=== PATIENT | male | born 1995 | race Caucasian/White ===

== ENCOUNTER 2022-11-20 10:27 | Emergency (ER) | payer BC, SELFPAY ==
[2022-11-20 11:02] VITALS: BP 133/87; PULSE 78; RESP 16; O2SAT 95
[2022-11-20 11:16] LABS: Amphetamine Screen Urine Negative (Negative); Barbiturate Screen Urine Negative (Negative); Benzodiazepines Screen Urine Negative (Negative); Cocaine Screen Urine Negative (Negative); Methadone Screen Urine Negative (Negative); Methamphetamines Screen Urine Negative (Negative); Opiate Screen Urine Negative (Negative); Oxycodone Screen Urine Negative (Negative); Phencyclidine Screen Urine Negative (Negative); Tricyclic Antidepressant Urine Negative (Negative)
[2022-11-20 11:18] LABS: Cannabinoid Screen Urine POSITIVE (Negative)
--- NOTE | 2022-11-20 11:23 | ED.GENADULT ---
HPI - General Adult General Time Seen by Provider: Date Seen: 11/20/22 Chief complaint: Headache/Migraine Stated complaint: Mental Health Time Seen by Provider: 11/20/22 10:38 Source: patient Mode of arrival: ambulatory Limitations: no limitations History of Present Illness HPI narrative: Patient is a 26-year-old male who has 30 days into his 60 day treatment for alcohol abuse. The patient reports he has had panic attacks he sees Dr. Weiss in [place] for primary care. He is on Vistaril and Effexor. He felt a little tremulous today had some rapid breathing felt his hands and feet get tingly. He is doing well with no alcohol. He reports no drug use or alcohol use. Although his marijuana screen is positive. Certainly this can last in his system for period of time. Patient denies chest pain breathing problem now he feels markedly better. He is trying to avoid any potentially addictive medications Related Data Allergies Allergy/AdvReac Type Severity Reaction Status Date / Time No Known Drug Allergies Allergy Verified 11/20/22 11:09 Review of Systems Status of ROS: Reports: 6 or more systems reviewed and unremarkable except as noted in History and below [facility] Social History Smoking Status: Former smoker How often do you have a drink containing alcohol: never AUDIT-C Alcohol total score: 0 Non-prescribed substance use: former substance user and marijuana (any form) Exam Narrative: Exam Narrative: Objective: Vital signs unremarkable O2 sat excellent In general patient apparent distress does not appear anxious sees descriptive in his issues mental status is appropriate, no suicidal ideation or plan. He does not feel depressed Heart rhythm regular heart murmur neurologic nonfocal Good peripheral perfusion noted Const: Vital Signs, click to edit/add: Vital Signs - 24 hr 11/20/22 11:02 11/20/22 11:36 Pulse Rate [Pulse Oximeter] 78 74 Respiratory Rate 16 Blood Pressure [Ri ght Upper Arm] 133/87 129/89 Pulse Oximetry 95 97 Oxygen Delivery Me thod Room Air Course Vital Signs Vital signs: Initial Vital Signs Pulse Rate 78 11/20/22 11:02 Pulse Rhythm Regular 11/20/22 11:02 Respiratory Rate 16 11/20/22 11:02 Blood Pressure 133/87 11/20/22 11:02 Blood Pressure Mean 102 04/05/23 11:02 Pulse Oximetry 95 11/20/22 11:02 Vital Signs Pulse Rate 78 11/20/22 11:02 Respiratory Rate 16 11/20/22 11:02 Blood Pressure 133/87 11/20/22 11:02 Pulse Oximetry 95 11/20/22 11:02 Pulse Rate 74 11/20/22 11:36 Respiratory Rate 16 11/20/22 11:02 Blood Pressure 129/89 11/20/22 11:36 Pulse Oximetry 97 11/20/22 11:36 Oxygen Delivery Method Room Air 11/20/22 11:36 Medical Decision Making MDM Narrative Medical decision making narrative: Patient is a 26-year-old male 30 days into his 60 day chemical dependency treatment program. He has a history of anxiety and panic attacks. At this point he is on Vistaril and Effexor. I think I would give him a small dose of Vistaril now 25 mg 2 some plant his usual dosage. Recommend rest observation exercise avoidance of any caffeine products. Would recommend he update Dr. Weiss is needed. Return as needed. Will also give him some Tylenol as he has had an intermittent headache. He has had no neurologic complaints however and does not have any worrisome symptoms to his had a Lab Data Labs: Lab Results 11/20/22 Range/Units 11:00 Urine Opiates Screen Negative (Negative) Ur Oxycodone Screen Negative (Negative) Urine Methadone Screen Negative (Negative) Ur Propoxyphene Screen Negative (Negative) Ur Barbiturates Screen Negative (Negative) U Tricyclic Antidepress Negative (Negative) Ur Phencyclidine Scrn Negative (Negative) Ur Amphetamines Screen Negative (Negative) U Methamphetamines Scrn Negative (Negative) U Benzodiazepines Scrn Negative (Negative) Urine Cocaine Screen Negative (Negative) U Marijuana (THC) Screen POSITIVE A* (Negative) Ur Drug Screen Comment See Note Discharge Plan Discharge Clinical Impression: Panic attack Condition: Improved Additional Instructions: Continue home medications, update Dr. Weiss is needed, cut back on caffeinated beverages. Return as needed. Activity Level: No Restrictions Discharge Diet: Regular Stand Alone Forms: [employer] Info Instructions
[2022-11-20] MEDS: ACETAMINOPHEN 500 MG TABLET 1000 MG PO (11:31)
[2022-11-20] MEDS: hydrOXYzine pamoate 25 MG CAPSULE PO (11:31)
[2022-11-20 11:36] VITALS: BP 129/89; PULSE 74; O2SAT 97
== END 2022-11-20 12:11 | disposition home or self-care (01) ==
PROVIDERS: Emergency Provider Family Medicine
DX: F41.0 Panic disorder [episodic paroxysmal anxiety] (principal)
CPT/HCPCS: 80306; 99283; A9270

== ENCOUNTER 2022-12-23 21:11 | Outpatient (CLI) | payer BC, SELFPAY | END 2022-12-23 21:12 | disposition home or self-care (01) | LOC: AMB 12-26 11:59 | PROVIDERS: Visit Provider Family Medicine | DX: R07.89 Other chest pain (principal) | CPT/HCPCS: A0425; A0427 ==

== ENCOUNTER 2022-12-23 21:35 | Emergency (ER) | payer BC, SELFPAY ==
[2022-12-23] VITALS (19 sets, daily range): BP systolic 103–125; BP diastolic 60–85; PULSE 71–92; RESP 18; TEMP 36.4; O2SAT 94–99; BMI 25.5
--- NOTE | 2022-12-23 22:09 | ED_ITS ---
HPI - General Adult General Time Seen by Provider: 22:09 Date Seen: 12/23/22 Chief complaint: Chest Pain Stated complaint: chest pain Time Seen by Provider: 12/23/22 22:09 Source: patient, EMS and RN notes reviewed Mode of arrival: EMS Limitations: no limitations History of Present Illness HPI narrative: Frederick is a very pleasant 27-year-old gentleman who is 64 days sober from alcohol and currently a resident at a local transitional housing Center who comes to the emergency room with chest pain. Patient states approximately 730 he began experiencing some shortness of breath and chest pain. EMS notes a normal EKG when they arrived but given the fact he was complaining of chest pain they did give him aspirin and nitroglycerin. Frederick did not feel that it made a difference. Here in the emergency room he notes that he still has a sensation in his left chest but his shortness of breath has improved. He has never had any heart problems in the past. He does smoke cigarettes but denies past history of drug use including cocaine or methamphetamines. He has otherwise been well and has not had a cough cold or congestion. He denies lower extremity edema or history of DVT. Related Data Home Medications Medication Instructions Recorded Confirmed albuterol sulfate 90 mcg/actuation inhalation 12/23/22 aerosol inhaler (Ventolin HFA) hydroxyzine HCl 25 mg tablet 25 mg PO 3XD 12/23/22 12/23/22 mometasone 50 mcg/actuation nasal 2 spray intranasal DAILY 12/23/22 12/23/22 spray omeprazole 20 mg capsule,delayed 20 mg PO DAILY 12/23/22 12/23/22 release trazodone 50 mg tablet 50 - 100 mg PO QPM PRN insomnia 12/23/22 12/23/22 venlafaxine 150 mg 150 mg PO DAILY 12/23/22 12/23/22 capsule,extended release 24 hr Allergies Allergy/AdvReac Type Severity Reaction Status Date / Time No Known Drug Allergies Allergy Verified 11/20/22 11:09 Review of Systems Status of ROS: Reports: 10 or more systems reviewed and unremarkable except as noted in History and below Const: Denies: fever or chills Eyes: Denies: change in vision ENMT: Denies: throat pain, neck pain or difficulty swallowing Cardio: Reports: chest pain, lightheadedness and shortness of breath when lying down; Denies: palpitations, edema, swelling of feet/ankles or shortness of breath with exertion Resp: Denies: shortness of breath or cough GI: Denies: abdominal pain, nausea, vomiting, diarrhea or difficulty swall owing Musculo: Denies: back pain, neck pain or extremity pain Neuro: Reports: weakness in extremities; Denies: headache or numbness in extremities [facility] Social History Smoking Status: Current every day smoker What tobacco products do you use: cigarettes Do you use any of these nicotine containing products: None How often do you have a drink containing alcohol: never AUDIT-C Alcohol total score: 0 Non-prescribed substance use: former substance user Exam Narrative: Exam Narrative: Alert and oriented. Appears fatigued. Exert external ears eyes nose clear. Heart with regular rate rhythm lungs are clear to auscultation. Abdomen soft nontender lower extremities without edema. In all extremities. No calf tenderness. Const: Vital Signs, click to edit/add: Vital Signs - 24 hr 12/23/22 21:47 12/23/22 22:00 12/23/22 22:02 Temperature 97.5 F L Pulse Rate 92 74 Pulse Rate [Pulse Oximeter] 75 Respiratory Rate 18 Blood Pressure 113/85 Blood Pressure [Ri ght Upper Arm] 125/85 Pulse Oximetry 97 98 94 Oxygen Delivery Me thod Room Air 12/23/22 22:03 12/23/22 22:20 12/23/22 22:22 Temperature Pulse Rate 77 74 72 Pulse Rate [Pulse Oximeter] Respiratory Rate Blood Pressure 123/85 Blood Pressure [Ri ght Upper Arm] Pulse Oximetry 96 99 98 Oxygen Delivery Tx thod 12/23/22 22:40 12/23/22 22:42 12/23/22 22:43 Temperature Pulse Rate 77 71 77 Pulse Rate [Pulse Oximeter] Respiratory Rate Blood Pressure 116/79 Blood Pressure [Ri ght Upper Arm] Pulse Oximetry 96 99 96 Oxygen Delivery Me thod 12/23/22 22:54 12/23/22 23:00 12/23/22 23:01 Temperature Pulse Rate 78 77 Pulse Rate [Pulse Oximeter] Respiratory Rate Blood Pressure 105/64 Blood Pressure [Ri ght Upper Arm] Pulse Oximetry 96 96 96 Oxygen Delivery Me thod 12/23/22 23:02 05/08/23 23:20 12/23/22 23:22 Temperature Pulse Rate 77 79 78 Pulse Rate [Pulse Oximeter] Respiratory Rate Blood Pressure 103/60 Blood Pressure [Ri ght Upper Arm] Pulse Oximetry 96 96 96 Oxygen Delivery Me thod Documenting provider has reviewed patient's vital signs: yes Course Course Hospital Course: At this time EMS has already placed an IV. Will check EKG, troponin x2. Also get a CBC, comprehensive panel, D-dimer. Plan on Toradol after initial EKG and troponin reassuring. Reevaluation(s) Reevaluation #1: Initial troponin is negative and I do enter the room to talk to home are any is sleeping soundly. Reevaluation #2: Patient is a woken for chest x-ray. He notes his pain is gone from a 6/10 to 2/10. Upon further discussion he notes that his hands were very cold during this episode and that has since resolved. He tells me that he does have a history of panic attacks but tonight felt different. He notes that there is not any particular stressors going on. He does note that he drinks a lot of caffeine. Vital Signs Vital signs: Initial Vital Signs Temperature 97.5 F L 12/23/22 21:47 Temperature Source Temporal Artery Scan 12/23/22 21:47 Pulse Rate 75 12/23/22 21:47 Respiratory Rate 18 12/23/22 21:47 Blood Pressure 125/85 12/23/22 21:47 Blood Pressure Mean 98 12/23/22 21:47 Blood Pressure Position Supine 12/23/22 21:47 Pulse Oximetry 97 12/23/22 21:47 Oxygen Delivery Method Room Air 12/23/22 21:47 Vital Signs Temperature 97.5 F L 12/23/22 21:47 Pulse Rate 75 12/23/22 21:47 Respiratory Rate 18 12/23/22 21:47 Blood Pressure 125/85 12/23/22 21:47 Pulse Oximetry 97 12/23/22 21:47 Oxygen Delivery Method Room Air 12/23/22 21:47 Temperature 97.5 F L 12/23/22 21:47 Pulse Rate 78 12/23/22 23:22 Respiratory Rate 18 12/23/22 21:47 Blood Pressure 103/60 12/23/22 23:22 Pulse Oximetry 96 12/23/22 23:22 Oxygen Delivery Method Room Air 12/23/22 21:47 Medical Decision Making MDM Narrative Medical decision making narrative: 1. Atypical Chest pain-EKG reassuring and cardiac enzymes are negative x2. D- dimer is negative and chest x-ray without abnormality. Possibilities a differential diagnosis does include panic attack but I cannot rule out episode of SVT or other arrhythmia. During his stay here manager cardiac cath noted sinus rhythm. He was able to sleep for an extended period of time. He now notes he is feeling much better and wishes to go home. 2. Disposition-home at this time. I did congratulate him on being 64 days sober. He is very proud of this and should be. Return as needed for recurrence of symptoms, worsening symptoms. We spoke about need for increase fluids and likely less caffeine and good sleep. Medical Records Medical records reviewed: Yes I reviewed the patient's medical records Lab Data Lab results reviewed: Yes I reviewed the patient's lab results Labs: Lab Results 12/23/22 12/23/22 12/24/22 Range/Units 21:28 22:20 00:08 WBC 6.72 (4.50-11.00) K/uL RBC 5.04 (4.30-5.90) m/uL Hgb 15.3 (13.5-17.5) gm/dL Hct 44.7 (37.0-53.0) % MCV 89 (80-100) fL MCH 30 (26-34) pg MCHC 34 (32-36) gm/dL RDW Coeff of Astrid 12.0 (11.5-15.5) % Plt Count 232 (140-440) K/uL Neut % (Auto) 47.1 (42.0-72.0) % Lymph % (Auto) 44.5 H (20-44) % [place] % (Auto) 6.3 (0.0-11.0) % Eos % (Auto) 0.9 (0.0-7.0) % Baso % (Auto) 0.6 (0.0-3.0) % Neut # (Auto) 3.17 (1.7-7.0) K/uL Lymph # (Auto) 3.00 H (0.90-2.90) K/uL [place] # (Auto) 0.40 (0.00-0.90) K/UL Eos # (Auto) 0.06 (0.00-0.50) K/uL Baso # (Auto) 0.04 (0.00-0.30) K/uL D-Dimer Quant (PE/DVT) < 0.27 (0.00-0.50) ug/ml Sodium 137 (135-149) mmol/L Potassium 4.5 (3.6-5.1) mmol/L Chloride 100 (96-114) mmol/L Carbon Dioxide 31 (20-32) mmol/L BUN 19 (5-24) mg/dL Creatinine 1.0 (0.5-1.5) mg/dL Estimated Creat Clear 101.02 Estimated GFR 106 ml/min Glucose 93 (60-115) mg/dL Calcium 9.2 (8.4-10.6) mg/dL Total Bilirubin 0.7 (0.1-1.5) mg/dL AST 23 (12-35) U/L ALT 23 (4-50) U/L Alkaline Phosphatase 82 (40-150) U/L C-Reactive Protein 0.8 (0.5-1.0) mg/dL Total Protein 7.0 (6.0-8.3) g/dL Albumin 4.4 (3.3-5.0) g/dL POC Troponin I 0.00 L 0.00 L (0.01-0.04) ng/ml Imaging Data Chest x-ray: Attestation: I have reviewed the pertinent imaging results. My impression: No evidence of mediastinal widening or pneumonia. ECG Data Attestation: I personally reviewed and interpreted this ECG as follows: Interpretation: EKG 1. By my read sinus rhythm. No acute ST or T-wave changes. Incomplete right bundle. Perhaps some slight slight J-point elevation throughout. EKG 2. By my read shows sinus rhythm at a rate of 80. I do not note any acute ST or T-wave changes. Incomplete right bundle. Unchanged from previous. Discharge Plan Discharge Clinical Impression: History of panic attacks, Atypical chest pain Patient Disposition: Home, Self-Care Condition: Improved Additional Instructions: Decrease caffeine intake. Increase fluid intake. Recommend returning to ER for increasing pain, onset of new symptoms and as needed. Prescriptions: No Action trazodone 50 mg tablet 50 - 100 mg PO QPM PRN (Reason: insomnia) venlafaxine 150 mg capsule,extended release 24hr 150 mg PO DAILY mometasone 50 mcg/actuation spray,non-aerosol 2 spray INTRANASAL DAILY omeprazole 20 mg capsule,delayed release(DR/EC) 20 mg PO DAILY hydroxyzine HCl 25 mg tablet 25 mg PO 3XD albuterol sulfate [Ventolin HFA] 90 mcg/actuation HFA aerosol inhaler inhalation Follow Up/Referrals: Provider,Not a Local [Primary Care Provider] - Stand Alone Forms: [employer] Info Instructions
[2022-12-23 22:35] LABS: Basophils Absolute Auto 0.04 K/uL (0.00-0.30); Basophils Percent Auto 0.6 % (0.0-3.0); Eosinophils Absolute Auto 0.06 K/uL (0.00-0.50); Eosinophils Percent Auto 0.9 % (0.0-7.0); Hematocrit 44.7 % (37.0-53.0); Hemoglobin* 15.3 gm/dL (13.5-17.5); Immature Granulocytes Abs Auto 0.04 K/uL (0.00-0.30); Immature Granulocytes Pct Auto 0.6 %; Lymphocytes Percent Auto 44.5 % (20-44); Mean Corpuscular HGB Conc 34 gm/dL (32-36); Mean Corpuscular Hemoglobin 30 pg (26-34); Mean Corpuscular Volume 89 fL (80-100); Monocytes Percent Auto 6.3 % (0.0-11.0); Neutrophils Absolute Auto 3.17 K/uL (1.7-7.0); Neutrophils Percent Auto 47.1 % (42.0-72.0); Platelet Count* 232 K/uL (140-440); Red Blood Count 5.04 m/uL (4.30-5.90); White Blood Count* 6.72 K/uL (4.50-11.00)
[2022-12-23 22:45] LABS: Albumin* 4.4 g/dL (3.3-5.0); Chloride* 100 mmol/L (96-114)
[2022-12-23 22:46] LABS: Potassium* 4.5 mmol/L (3.6-5.1); Slide Review Reflex No; Sodium* 137 mmol/L (135-149)
[2022-12-23 22:48] LABS: Bilirubin Total* 0.7 mg/dL (0.1-1.5); Est. Creatinine Clearance* 101.02; Estimated Glomerular Filt Rate 106 ml/min
[2022-12-23 22:49] LABS: Alanine Aminotransferase* 23 U/L (4-50); Alkaline Phosphatase* 82 U/L (40-150); Aspartate Amino Transferase* 23 U/L (12-35); Blood Urea Nitrogen* 19 mg/dL (5-24); Calcium* 9.2 mg/dL (8.4-10.6); Carbon Dioxide* 31 mmol/L (20-32); Glucose* 93 mg/dL (60-115)
[2022-12-23 22:52] LABS: C Reactive Protein* 0.8 mg/dL (0.5-1.0)
[2022-12-23 22:56] LABS: D Dimer Quantitative* < 0.27 ug/ml (0.00-0.50)
[2022-12-24] VITALS: PULSE 70; O2SAT 97
[2022-12-24 00:02] VITALS: BP 114/69; PULSE 69; O2SAT 98
--- NOTE | 2022-12-24 00:08 | CRLHL7_ITS ---
For Patients: As a result of the Cures Act, medical imaging exams and procedure reports are released immediately into your electronic medical record. You may view this report before your referring provider. If you have questions, please contact your health care provider. INDICATION: Chest pain. TECHNIQUE: Chest 1 views. COMPARISON: None. FINDINGS: Lungs: Low lung volumes. No consolidation. The tracheobronchial tree and hilar structures are unremarkable. Pleura: No pleural effusion or pneumothorax. Heart and Mediastinum: Normal heart size. The great vessels of the thorax are unremarkable. Bones: No acute displaced osseous process. IMPRESSION: No consolidation. Dictated by Miguel Lujan MD @ 12/24/2022 12:56:40 AM (Electronically Signed)
[2022-12-24 00:20] VITALS: PULSE 77; O2SAT 99
[2022-12-24 00:24] VITALS: BP 120/67; PULSE 76; O2SAT 98
[2022-12-24 00:40] VITALS: PULSE 73; O2SAT 97
[2022-12-24 00:41] VITALS: BP 105/73; PULSE 73; O2SAT 97
[2022-12-24] MEDS: ACETAMINOPHEN 500 MG TABLET 1000 MG PO (01:11)
== END 2022-12-24 01:13 | disposition home or self-care (01) ==
PROVIDERS: Emergency Provider Family Medicine
DX: R07.9 Chest pain, unspecified (principal)
CPT/HCPCS: 36415; 71045; 80053; 84484; 85025; 85379; 86140; 93005; 94761; 99284; 99285; A9270